=== PATIENT | female | born 1960 | race Caucasian/White ===

== ENCOUNTER 2022-04-09 13:56 | Outpatient (CLI) | payer BC, SELFPAY ==
[2022-04-09 15:32] LABS: Basophils Percent Auto 0.5 % (0.2-1.2); Eosinophils Absolute Auto 0.1 K/mm3 (0-0.3); Eosinophils Percent Auto 1.3 % (0-4.4); Hematocrit 41.9 % (37.0-47.0); Hemoglobin 13.5 g/dL (12.0-15.0); Immature Granulocyte Absolute 0.02 K/mm3 (0.00-0.031); Immature Granulocyte Percent A 0.3 % (0-0.5); Lymphocytes Absolute Auto 2.99 K/mm3 (0.9-3.2); Mean Corpuscular HGB Conc 32.2 g/dl (32-36); Mean Corpuscular Hemoglobin 29.2 pg (26-34); Mean Corpuscular Volume 90.5 fl (80-100); Mean Platelet Volume 10.4 fl (7.4-10.4); Monocytes Absolute Auto 0.5 K/mm3 (0.1-0.6); Monocytes Percent Auto 7.2 % (2.6-8.5); Neutrophils Absolute Auto 3.8 K/mm3 (1.3-6.7); Neutrophils Percent Auto 50.7 % (45.5-73.1); Platelet Count Result 285 k/mm3 (150-375); Red Blood Count 4.63 M/mm3 (4.2-5.4); Red Cell Distribution Width 13.1 % (11.5-14.5); White Blood Count 7.5 K/mm3 (4.5-10.0)
[2022-04-09 15:47] LABS: Alanine Aminotransferase 20 U/L (6-35); Albumin Level 4.8 g/dL (3.5-5.1); Anion Gap 12 mmol/L (8-16); Aspartate Amino Transferase 22 U/L (14-36); Bilirubin,Total 0.4 mg/dL (0.2-1.3); Blood Urea Nitrogen 15 mg/dL (7-17); Calcium 9.3 mg/dL (8.4-10.2); Carbon Dioxide 31 mmol/L (22-30); Chloride 100 mmol/L (98-107); Estimated Glomerular Filt Rate > 60; Glucose 93 mg/dL (65-110); Sodium 143 mmol/L (137-145)
[2022-04-09 15:55] LABS: INR 1.2; Prothrombin Time 14.7 Seconds (11.1-14.7)
[2022-04-09 15:56] LABS: Partial Thromboplastin Time 32.4 SECONDS (22.3-36.8)
[2022-04-09 16:34] LABS: Alkaline Phosphatase < 20 U/L (38-126)
== END 2022-04-09 13:57 | disposition home or self-care (01) ==
LOC: ANHSURGERY 14:03
PROVIDERS: PCP Nurse Practitioner Family; Visit Provider Urology
DX: N81.4 Uterovaginal prolapse, unspecified (principal); Z01.818 Encounter for other preprocedural examination
CPT/HCPCS: 36415; 80053; 85025; 85610; 85730; 86850; 86900; 86901; 87086

== ENCOUNTER 2022-04-22 00:51 | Day surgery (SDC) | payer BC, SELFPAY ==
--- NOTE | 2022-04-05 10:14 | PM.IMHP ---
H&P: HPI History of Present Illness Date/Time: 04/05/22 10:14 Chief Complaint: Pelvic organ prolapse, stress incontinence Narrative: 61-year-old with uterine prolapse and stress incontinence presents for surgical procedure Review of Systems Review of Systems: All systems reviewed & are unremarkable except as noted in HPI and below PMFSH Family History Family History Mother Hypertension Family history of elevated blood lipids Family history of coronary artery disease Father Family history of lymphoma Social History Social History Alcohol intake: never Meds Home Medications and Allergies Allergies Allergy/AdvReac Type Severity Reaction Status Date / Time quinapril Allergy Unknown Verified 12/01/09 13:41 No Known Allergies Allergy Unverified 06/25/12 16:46 Exam Narrative: Cystocele at +4. Apical support loss at +2. No acute distress Alert and oriented x3 Urethral mobility Assessment and Plan Assessment and plan (1) Uterine prolapse: Code(s): N81.4 - Uterovaginal prolapse, unspecified Status: Acute Assessment and Plan: Robotic colpopexy and urethral sling. Understands the risks of bleeding, infection, damage surrounding organs, damage to the bowel or urinary tract, recurrent or persistent incontinence. Recurrent, persistent, recurrent prolapse. Postoperative voiding dysfunction requiring incontinence or retention, hip and leg pain, mesh related complications, need for ancillary procedures. She agrees to proceed (2) ANGÉLICA (stress urinary incontinence, female): Code(s): N39.3 - Stress incontinence (female) (male) Status: Acute
[2022-04-09 14:08] VITALS: BMI 27.9
--- NOTE | 2022-04-09 14:48 | PC.NURSE ---
Report to the Outpatient Waiting Room, entrance under the green pavilion located off [facility], at time _0600 on date __04/22/22 . Planned Procedure Time: __729 . Time changes happen often and if your time is changed the preop area will call you the afternoon before. - You and your visitor will be asked to self-screen and do not enter if you have any COVID symptoms. - We encourage only one visitor and NO visitors under age 16 are allowed at this time. Your visitor will receive communication by the phone number that is given day of service. - The patient visitor is requested to social distance or may leave the building when not with patient due to restrictions. - A mask is required within the hospital. Patients may have clear liquids (water, carbonated beverages, clear teas, apple juice) until 3 hours prior to surgery with a maximum of 20 ounces. - No food from midnight until time of surgery - Infants may have breast milk until 4 hours before surgery, formula 6 hours prior to surgery. - Children will be allowed to drink immediately following surgery. If applicable, please bring a bottle or sippy cup to assist with drinking. Juice, water, soda, and popsicles are readily available. For infants on formula, please bring formula the day of surgery. Pacifiers are allowed. Take the following medications with a SIP of water the morning of surgery: ____NONE Medications to discontinue per physician __PT STATES ASPIRIN AND ELIQUIS 2 DAYS PRE OP PER DR ALVAREZ Date to take last dose___04/19/22 Please no make-up, nail albanian, hairspray, perfume, deodorant, or body powder the day of surgery. No jewelry (including any body piercings) or valuables the day of surgery, leave them at home. Please take a shower or bath the night before, or the morning of, surgery with an antibacterial soap. Wear comfortable, loose fitting clothing. Children are encouraged to wear pajamas. - Jewelry must be removed prior to entering the operating room. Rings and piercings that are not removed may be cut off. - The hospital will not accept responsibility for valuables. - Please leave all valuables, including medications, at home the day of surgery. If you are going home after surgery, a licensed four horse hitch driver must drive you home. - NO public transportation without another adult. - We recommend that an adult stay with you for 24 hours following discharge. - We also recommend that you do not drive, make important decision, drink alcoholic beverages, or take any drugs that were not prescribed by your health care provider for at least 24 hours after your discharge time. For Pediatric surgeries, we recommend two adults accompany the child home. Follow any additional instructions given to you from your surgeon. If you or anyone in your household have experienced Covid symptoms in the past week, please notify your surgeon or the nurse liaison at the phone number below for possible testing. VERBAL AND WRITTEN instructions given to _PATIENT and asked if any additional questions and then verbalized understanding. Patient advised to call surgeon office or pre surgery nurse liaison [phone] if any additional questions.
[2022-04-09 14:59] VITALS: BP 150/88; PULSE 64; RESP 18; TEMP 36.6; O2SAT 100
[2022-04-22] VITALS (9 sets, daily range): BP systolic 107–151; BP diastolic 59–83; PULSE 46–64; RESP 12–19; TEMP 36.1–36.6; O2SAT 92–100; BMI 27.8
[2022-04-22] MEDS: LACTATED RINGERS 1,000 ML 30 ML IV CONT ×2 (06:45→11:10)
--- NOTE | 2022-04-22 06:56 | ECG_ITS ---
Measurements Intervals [place] Rate: 60 P: 49 DE: 185 QRS: 39 QRSD: 83 T: 29 QT: 416 QTc: 416 Interpretive Statements SINUS RHYTHM ATRIAL PREMATURE COMPLEX BASELINE ARTIFACT- V4-V5 BORDERLINE ECG NO PREVIOUS ECG AVAILABLE FOR COMPARISON Electronically Signed On 04-22-2022 7:50:37 [employer] by Ron Mixon D.O.
[2022-04-22] MEDS: ACETAMINOPHEN 500 MG TABLET 1000 MG PO (06:58)
[2022-04-22] MEDS: KETOROLAC 15 MG/ML VIAL (*BKC) IV PUSH (06:58)
--- NOTE | 2022-04-22 07:12 | WPDHPUPDATE1 ---
History and Physical Update Update Date/Time: 04/22/22 07:12 History and Physical has been reviewed, including an updated exam of the patient. There are NO changes in the patient's condition. Risks, benefits, and alternatives have been discussed and questions answered. Patient agrees to proceed with procedure.
--- NOTE | 2022-04-22 07:13 | WPDANESEPPF ---
Anes - Initial Pre Proc Eval Procedure: Operation Date: 04/22/22 07:30 Proposed Procedures p Robotic Sacrocolpopexy - Braulio Aguirre MD s Urethral Sling - Braulio Aguirre MD s Robotic Assisted Supracervical Hsterectomy with Bilateral Salpingo-oophorectomy - Clair Morataya MD Date/Time: 04/22/22 07:13 Surgeon: Braulio Aguirre MD Pre Op Diagnosis: Uterine Prolapse,stress Incont, Perineal Laxity Patient Data Age: 61 Gender: F Height: 1.61 m Weight: 72.4 kg Last Vital Signs Temp 97.9 F 04/22/22 06:20 Pulse 64 04/22/22 06:20 Resp 14 04/22/22 06:20 BP 151/83 H 04/22/22 06:20 Pulse Ox 98 04/22/22 06:20 O2 Del Method Room Air 04/22/22 06:20 Allergies Allergy/AdvReac Type Severity Reaction Status Date / Time quinapril Allergy Unknown Unknown Verified 04/22/22 06:26 rivaroxaban [From Xarelto] AdvReac Severe Headache Verified 04/22/22 06:26 lisinopril AdvReac Cough Verified 04/22/22 06:26 Home Medications Medication Instructions Recorded Confirmed Type apixaban 5 mg tablet (Eliquis) 5 mg PO BID 04/09/22 04/22/22 History aspirin 81 mg tablet,delayed 81 mg PO DAILY 04/09/22 04/22/22 History release (Enteric Coated Aspirin) atorvastatin 20 mg tablet 20 mg PO HS 04/09/22 04/09/22 History metoprolol succinate 50 mg 50 mg PO QPM 04/09/22 04/22/22 History tablet,extended release 24 hr Patient hx anesthesia problems: none Family hx anesthesia problems: none Results Review: All pre-operative results and documents have been reviewed as part of the pre-operative evaluation. [facility] Family History Family History Mother Hypertension Family history of elevated blood lipids Family history of coronary artery disease Father Family history of lymphoma Social History Social History Smoking status: Never smoker Alcohol intake: never Spiritual care concerns: No Anes - Eval Final PreProcedure Day of Procedure 04/22/22 07:13 Patient weight: normal Heart: irregular rhythm Lungs: clear to auscultation Airway: Mallampati scale class II Neurological: alert and oriented Last oral intake: >/= 8 hours ASA classification: III Emergent: no Anesthetic plan: proceed Anesthesia type and monitoring: general ETT and standard monitoring Results Review: All pre-operative results and documents have been reviewed as part of the pre-operative evaluation. Informed Consent: The patient's anesthetic plan and its attendant risks and benefits were discussed with the patient/family/POA. Questions were solicited and answers provided to the satisfaction of the patient/family/POA.
--- NOTE | 2022-04-22 07:15 | WPDHPUPDATE1 ---
History and Physical Update Update Date/Time: 04/22/22 07:15 History and Physical has been reviewed, including an updated exam of the patient. There are NO changes in the patient's condition. Risks, benefits, and alternatives have been discussed and questions answered. Patient agrees to proceed with procedure.
[2022-04-22] MEDS: ceFAZolin 2 GM/D5W 50 ML 2 GM/50 ML BAG IVPB (07:34)
[2022-04-22] MEDS: ceFAZolin SODIUM 1 GM VIAL (07:55)
[2022-04-22] MEDS: metroNIDAZOLE 500 MG/ISO 100ML 500 MG/100 ML BAG 100 MG IVPB (07:57)
--- NOTE | 2022-04-22 09:36 | W.PM.PROC2 ---
Procedure Note - Detailed Date of Procedure 04/22/22 Pre-op Diagnosis Uterine Prolapse,stress Incont, Perineal Laxity Post-op Diagnosis Same Procedure Performed Robotic assisted supracervical hysterectomy with bilateral salpingo-oophorectomy Surgeon Clair Morataya MD Anesthesia General Indications pelvic organ prolapse Findings normal-appearing uterus, ovaries, and left tube, right tube was partially resected. Some scarring over the posterior cul-de-sac peritoneum. Description of Procedure This patient was taken to the operating room. She was prepped and draped in the dorsal lithotomy position after induction of general anesthesia. the robot trocars and docking was performed by Dr. Aguirre. a tenaculum was applied to the vaginal mucosa at the cervicovaginal juncture posteriorly. This was done with a speculum and tenaculum. The speculum was placed. The cervix was grasped with a tenaculum. Trocars were placed by Dr. Aguirre. The location of the ureters was identified at the pelvic brim. The ovaries were grasped and raised. The infundibulopelvic ligaments were cauterized and transected with LigaSure cautery. This was all done in a bilateral fashion. The para ovarian tissue was cauterized and transected with LigaSure cautery bilaterally. Moving around the ovary into the broad ligament the tissue was cauterized transected with The vessel sealer cautery. The round ligaments were cauterized transected with the vessel sealer cautery this was all done in a bilateral fashion. In a stepwise fashion along the lateral aspects of the uterus the round ligament and broad ligaments were cauterized transected down to the level of the uterine arteries. The cervix was transected using unipolar cautery. the uterus was bifurcated down to the level the cervix. The uterus and bilateral tubes and ovaries were laid off to the side for Dr. Aguirre to remove later. The remainder of the procedure was performed by Dr. Aguirre, again he finished the surgery. Urine Output 800 Drains Yes Packing No Pathology Yes Complications No immediate complications Condition Stable Disposition Floor
[2022-04-22] MEDS: BUPIVACAINE/EPINEPHRINE 0.25% 50 ML VIAL 10 ML INFILTRATE (10:49)
--- NOTE | 2022-04-22 11:05 | W.PM.PROC2 ---
Procedure Note - Detailed Date of Procedure 04/22/22 Pre-op Diagnosis Uterine Prolapse,stress Incontinence Post-op Diagnosis Same Procedure Performed Robotic assisted laparoscopic sacral colpopexy Urethral sling Cystoscopy Surgeon Braulio Aguirre MD Anesthesia General Indications This is a woman with uterine prolapse as well as stress incontinence. She desires surgical correction. She is here for the above. She understands risks of bleeding, infection, diskitis, damage to surrounding organs, bowel injury, bowel obstruction, mesh related complications including exposure and extrusion, postoperative voiding dysfunction including incontinence and retention, need for ancillary procedures, dyspareunia, recurrence of prolapse, and other perioperative intraoperative postoperative complications. She agrees to proceed. Findings See below Description of Procedure She was correctly identified. Informed consent obtained. She from the operating room. She was given general anesthesia. She was given appropriate perioperative antibiotics. She was placed a low lithotomy position. Pressure points were padded. A time-out performed. I marked out the skin 3 fingerbreadths cephalad to the umbilicus. I anesthetized the skin. I incised the skin. I dissected down to the fascia. I grasped the fascia with Emmanuel clamps. I entered the fascia sharply in a Dillard type technique. I placed sutures for later fascial closure. I placed a midline trocar. I examined the abdomen. There is no sign of any injury. Under direct vision I placed 2 additional trocars in the right upper quadrant and 2 additional trocars the left upper quadrant. She was placed in steep Trendelenburg. The robot was docked. Her bilingual sales representative completed their portion of the procedure. Please see that operative report for details. I then sat at the console. The Sizer in the vagina created plane on the anterior and posterior vaginal wall. I took great care not to injure the vagina, bladder, or rectum. I introduced the mesh into the abdomen. I sewed the anterior leaflet of mesh on the anterior vaginal wall. I sewed the posterior leaflet of mesh on the posterior vaginal wall. This was done with several sutures of 2 0 [place]Rachid. I reflected the colon laterally. I opened the posterior peritoneum over the sacral promontory. I carried this into the cul-de-sac. I freed up the edges for later retroperitonealization. I located the anterior longitudinal ligament the sacrum. I cleaned off all fatty tissues. I then tensioned my mesh appropriately. I did a vaginal exam the bedside. I assured prolapse reduction without undue tension. I then sewed the proximal leaflet of mesh onto the anterior longitudinal ligament of the sacrum with several sutures of 2 0 [place]Rachid. I then used a 2 0 Monocryl to completely and meticulously retroperitonealized all mesh. I allowed the colon to go back to its normal anatomic location. There is no sign of any impingement. The specimen was then removed. All ports removed. An additional fascial suture was placed. Fascia was tied down. Skin was closed with Monocryl and surgical glue. She was repositioned and prepped for urethral sling. I marked out the inner thigh incisions. I anesthetized the skin and made the incisions. I then anesthetized the anterior vaginal wall at the mid urethra. I made a 1 cm incision. I dissected out laterally taking great care not to injure the refilled vaginal wall. I passed the helical trocars. I did this 1st on the left and then on the right. This was done from the thigh incision towards the vaginal incision. Sling was connected to the trocars and brought out the thigh incision. I tensioned the sling appropriately. I cut and the plastic sheaths. I closed the incision with 2 0 Vicryl. Examination revealed excellent apical support. No significant cystocele. She had a bit of perineal laxity. Very small degree of very distal rectocele.
[2022-04-22] MEDS: fentaNYL CITRATE INJ (*CRX) 100 MCG/2 ML VIAL 25 MCG IV PUSH ×7 (11:22→13:06)
[2022-04-22] MEDS: ONDANSETRON INJ 4 MG/2 ML VIAL IV PUSH ×2 (11:48→12:04)
--- NOTE | 2022-04-22 12:47 | SUR.OPER ---
300 CC NS INSTILLED TO BLADDER , CATHTER DISCONTINUED
== END 2022-04-22 14:21 | disposition home or self-care (01) ==
PROVIDERS: Obstetrics & Gynecology; PCP Nurse Practitioner Family; Visit Provider Urology
PROC: (CPT 57425; principal; 2022-04-22 07:30)
PROC: (CPT 57288; 2022-04-22 07:30)
PROC: 0UT94ZZ Resection of Uterus, Percutaneous Endoscopic Approach (ICD-10-PCS; CPT 57425; 2022-04-22 07:30)
DX: N81.4 Uterovaginal prolapse, unspecified (principal); N39.3 Stress incontinence (female) (male); N83.8 Other noninflammatory disorders of ovary, fallopian tube and broad ligament; Z79.01 Long term (current) use of anticoagulants; Z79.82 Long term (current) use of aspirin
CPT/HCPCS: 57288; 57425; 58542; S2900 ×2; 88307; 93005; A9270; C1771; C1781; C9290; J0690; J1100; J1170; J1885; J2250; J2405; J2704; J3010; J7030; J7120